=== PATIENT | female | born 1995 | race American Indian/Alaskan Native ===

== ENCOUNTER 2017-09-05 12:36 | Emergency (ER) | payer SELFPAY ==
[2017-09-05] MEDS ORDERED: NORCO 5/325 PO ONE (13:15)
[2017-09-05] MEDS ORDERED: XYLOCAINE 2%/EPI 1:100,000 INFILTRATI ONE (13:26)
[2017-09-05] MEDS ORDERED: XYLOCAINE 2%/ EPI 1:200,000 INFILTRATI ONE (13:27)
--- NOTE | 2017-09-05 13:29 | Emergency Department Report ---
Abscess Boil HPI - HPI Chief Complaint: Wound/Laceration Stated Complaint: INSECT BITE Duration: 1 Week Location: Lower Extremity Severity: Mild History: Yes Pain, Yes Purulent Drainage, Yes Insect Bite, No Fever, No Numbness , No Foreign Body, No Previous History HPI: 22 year old female presents to ED with left lower leg abscess x1 week. patient is stable, neurologically intact, afebrile and in no acute distress. Home Medications: Previous Rx's Medication Instructions Recorded Last Taken Type Cephalexin [Keflex] 500 mg PO Q8H #21 cap 09/05/17 Unknown Rx Meloxicam 7.5 mg PO QAM #7 tablet 09/05/17 Unknown Rx Allergies/Adverse Reactions: Allergies Allergy/AdvReac Type Severity Reaction Status Date / Time No Known Allergies Allergy Unverified 09/05/17 12:53 ED Review of Systems ROS: Stated complaint: INSECT BITE Other details as noted in HPI Constitutional: denies: chills, fever Eyes: denies: eye pain, eye discharge, vision change ENT: denies: ear pain, throat pain Respiratory: denies: cough, shortness of breath, wheezing Cardiovascular: denies: chest pain, palpitations Endocrine: no symptoms reported Gastrointestinal: denies: abdominal pain, nausea, diarrhea Genitourinary: denies: urgency, dysuria, discharge Musculoskeletal: denies: back pain, joint swelling, arthralgia Skin: other (abscess to left lower leg). denies: rash, lesions Neurological: denies: headache, weakness, numbness, paresthesias, confusion, abnormal gait, vertigo Psychiatric: denies: anxiety, depression Hematological/Lymphatic: denies: easy bleeding, easy bruising ED Past Medical Hx - Past Medical History Previous Medical History?: No - Surgical History Past Surgical History?: No - Social History Smoking Status: Current Some Day Smoker Substance Use Type: None - Medications Home Medications: Home Medications Medication Instructions Recorded Confirmed Last Taken Type Cephalexin [Keflex] 500 mg PO Q8H #21 cap 09/05/17 Unknown Rx Meloxicam 7.5 mg PO QAM #7 tablet 09/05/17 Unknown Rx ED Abscess Boil Physical Exam - Exam General: Vital signs noted. No distress. Alert and acting appropriately. Size: 4 cm Exam: Yes Tenderness, Yes Fluctuance, Yes Normal Neurologic Exam, Yes Normal Circulation, No Surrounding Cellulites/Erythema, No Lymphangitis, No Crepitation , No Heart Murmur Exam: abscess present to left lateral tib/fib. purulent drainage present at head of abscess. I & D Note - I & D Note I & D Note: area prepped with betadine. 5cc's of lido with epi used for numbing. moderate amount of drainage obtained after incision. packing inserted into wound. sterile dressing applied. patient tolerated procedure well. bleeding well controlled. ED Course Vital Signs 09/05/17 12:51 Temperature 97.7 F Pulse Rate 100 H Respiratory 18 Rate Blood Pressure 143/67 O2 Sat by Pulse 100 Oximetry Critical care attestation.: If time is entered above; I have spent that time in minutes in the direct care of this critically ill patient, excluding procedure time. ED Medical Decision Making - Lab Data Vital Signs (72 hours) 09/05/17 09/05/17 12:51 14:13 Temperature 97.7 F 98.6 F Pulse Rate 100 H 88 Respiratory 18 16 Rate Blood Pressure 143/67 Blood Pressure 135/81 [Left] O2 Sat by Pulse 100 100 Oximetry - Medical Decision Making 22 year old female presents to ED with abscess to left lower leg. patient tolerated I&D well. .patient agrees and understands to return to ED in 3 days for recheck. patient is stable, neurologically intact and in no acute distress. ED Disposition Clinical Impression: Abscess of leg, left Disposition: DC-01 TO HOME OR SELFCARE Is pt being admited?: No Does the pt Need Aspirin: No Condition: Stable Instructions: Abscess (ED) Additional Instructions: Please return in 3 days (Friday) for recheck Prescriptions: Cephalexin [Keflex] 500 mg PO Q8H #21 cap Meloxicam 7.5 mg PO QAM #7 tablet Referrals: PRIMARY CARE, [Primary Care Provider] - 3-5 Days Forms: Work/School Release Form(ED)
[2017-09-05] MEDS ORDERED: TRIPLE ANTIBIOTIC TP ONE (13:56)
[2017-09-05] MEDS ORDERED: XYLOCAINE 1%/ EPI 1:100,000 INFILTRATI NR (14:00)
[2017-09-05 14:14] VITALS: BP 135/81
== END 2017-09-05 14:13 | disposition home or self-care (01) ==
LOC: ED 12:36
DX: L02.416 Cutaneous abscess of left lower limb (principal); F17.200 Nicotine dependence, unspecified, uncomplicated
CPT/HCPCS: A6250

== ENCOUNTER 2017-09-30 09:45 | Emergency (ER) | payer SELFPAY ==
[2017-09-30 10:19] VITALS: BP 150/81
--- NOTE | 2017-09-30 11:30 | Emergency Department Report ---
ED General Adult HPI - General Chief complaint: Skin Rash Stated complaint: RASH Time Seen by Provider: 09/30/17 11:09 Source: patient Mode of arrival: Ambulatory Limitations: No Limitations - History of Present Illness Initial comments: 22 year old female presents with rash to bilateral lower leg. states that she just had an abscess drained to the left lower leg and finished taking abx. states now she is having another spot on left and right leg that is red, warm, ttp. denies swelling or pus drainage. denies taking medication since she finished her abx. denies fever. - Related Data Previous Rx's Medication Instructions Recorded Last Taken Type Cephalexin [Keflex] 500 mg PO Q8H #21 cap 09/05/17 Unknown Rx Meloxicam 7.5 mg PO QAM #7 tablet 09/05/17 Unknown Rx Ibuprofen [Motrin] 800 mg PO Q8HR PRN #20 tablet 09/30/17 Unknown Rx Sulfamethoxazole/Trimethoprim 1 each PO BID #20 tablet 09/30/17 Unknown Rx [Bactrim DS TAB] Allergies Allergy/AdvReac Type Severity Reaction Status Date / Time No Known Allergies Allergy Unverified 09/05/17 12:53 ED Review of Systems ROS: Stated complaint: RASH Other details as noted in HPI Constitutional: denies: chills, fever Eyes: denies: eye pain, eye discharge, vision change ENT: denies: ear pain, throat pain Respiratory: denies: cough, shortness of breath, wheezing Cardiovascular: denies: chest pain, palpitations Endocrine: no symptoms reported Gastrointestinal: denies: abdominal pain, nausea, diarrhea Genitourinary: denies: urgency, dysuria, discharge Musculoskeletal: denies: back pain, joint swelling, arthralgia Skin: rash. denies: lesions Neurological: denies: headache, weakness, paresthesias Psychiatric: denies: anxiety, depression Hematological/Lymphatic: denies: easy bleeding, easy bruising ED Past Medical Hx - Past Medical History Previous Medical History?: Yes Additional medical history: Skin rash/boils - Surgical History Past Surgical History?: No - Social History Smoking Status: Current Some Day Smoker Substance Use Type: None - Medications Home Medications: Home Medications Medication Instructions Recorded Confirmed Last Taken Type Cephalexin [Keflex] 500 mg PO Q8H #21 cap 09/05/17 Unknown Rx Meloxicam 7.5 mg PO QAM #7 tablet 09/05/17 Unknown Rx Ibuprofen [Motrin] 800 mg PO Q8HR PRN #20 tablet 09/30/17 Unknown Rx Sulfamethoxazole/Trimethoprim 1 each PO BID #20 tablet 09/30/17 Unknown Rx [Bactrim DS TAB] ED Physical Exam - General Limitations: No Limitations General appearance: alert, in no apparent distress - Head Head exam: Present: atraumatic, normocephalic - Eye Eye exam: Present: normal appearance - ENT ENT exam: Present: mucous membranes moist - Neck Neck exam: Present: normal inspection - Respiratory Respiratory exam: Present: normal lung sounds bilaterally. Absent: respiratory distress - Cardiovascular Cardiovascular Exam: Present: regular rate, normal rhythm. Absent: systolic murmur, diastolic murmur, rubs, gallop - GI/Abdominal GI/Abdominal exam: Present: soft, normal bowel sounds - Extremities Exam Extremities exam: Present: normal inspection - Back Exam Back exam: Present: normal inspection - Neurological Exam Neurological exam: Present: alert, oriented X3 - Psychiatric Psychiatric exam: Present: normal affect, normal mood - Skin Skin exam: Present: warm, dry, intact, normal color, other (bilateral lower leg have erythema about 6 cm in diameter with tenderness, slight induration. no fluctuance or pus drainage.). Absent: rash ED Course Vital Signs 09/30/17 10:13 Temperature 98.5 F Pulse Rate 68 Respiratory 18 Rate Blood Pressure 150/81 O2 Sat by Pulse 99 Oximetry ED Medical Decision Making - Medical Decision Making patient to be treated with bactrim for cellulitis. states that she is taking 2 baths a day. advised to bath less frequently. VSS for DC. NAD at this time. Critical care attestation.: If time is entered above; I have spent that time in minutes in the direct care of this critically ill patient, excluding procedure time. ED Disposition Clinical Impression: Cellulitis of right lower leg, Cellulitis of left lower leg Disposition: DC-01 TO HOME OR SELFCARE Is pt being admited?: No Does the pt Need Aspirin: No Condition: Good Instructions: Cellulitis (ED) Prescriptions: Ibuprofen [Motrin] 800 mg PO Q8HR PRN #20 tablet PRN Reason: Pain Sulfamethoxazole/Trimethoprim [Bactrim DS TAB] 1 each PO BID #20 tablet Referrals: BRAD MASTERSON MD [Primary Care Provider] - 3-5 Days Forms: Work/School Release Form(ED) Time of Disposition: 11:33
== END 2017-09-30 11:40 | disposition home or self-care (01) ==
LOC: ED 09:45
DX: L03.116 Cellulitis of left lower limb (principal); L03.115 Cellulitis of right lower limb; F17.200 Nicotine dependence, unspecified, uncomplicated
CPT/HCPCS: 99282

== ENCOUNTER 2019-06-23 18:12 | Emergency (ER) | payer SELFPAY ==
[2019-06-23 18:51] VITALS: BP 153/87
--- NOTE | 2019-06-23 18:51 | Emergency Department Report ---
Blank Doc - Documentation Documentation: This is a 24-year-old female that presents with dizziness and cough. Stated has chest pain that is aggravated and worsening coughing. Denies any SOB. This initial assessment/diagnostic orders/clinical plan/treatment(s) is/are subject to change based on patient's health status, clinical progression and re- assessment by fellow clinical providers in the ED. Further treatment and workup at subsequent clinical providers discretion. Patient/guardians urged not to elope from the ED as their condition may be serious if not clinically assessed and managed. Initial orders include: 1- Patient sent to [facility] for further evaluation and treatment 2- labs 3- CXR
[2019-06-23] MEDS ORDERED: NACL 0.9% 1000 ML 1,000 ML IV ONE (19:36)
[2019-06-23] MEDS ORDERED: ANTIVERT PO ONE (19:37)
[2019-06-23] MEDS ORDERED: FIORICET PO ONE (19:37)
[2019-06-23] MEDS ORDERED: TORADOL IV ONE (19:37)
[2019-06-23 20:46] LABS: Basophils % (Auto) 0.6 % (0.0-1.8); Eosinophils # (Auto) 0.2 K/mm3 (0.0-0.4); Eosinophils % (Auto) 2.3 % (0.0-4.3); Hematocrit 34.5 % (30.3-42.9); Hemoglobin 11.1 gm/dl (10.1-14.3); Lymphocytes # (Auto) 2.8 K/mm3 (1.2-5.4); Lymphocytes % (Auto) 35.5 % (13.4-35.0); Mean Corpuscular HGB Conc 32 % (30-34); Mean Corpuscular Volume 77 fl (79-97); Monocytes # (Auto) 0.9 K/mm3 (0.0-0.8); Monocytes % (Auto) 11.2 % (0.0-7.3); Platelet Count 370 K/mm3 (140-440); Red Blood Count 4.51 M/mm3 (3.65-5.03); Red Cell Distribution Width 16.2 % (13.2-15.2)
[2019-06-23 20:58] LABS: Alanine Aminotransferase 15 units/L (7-56); BUN/Creatinine Ratio 17; Blood Urea Nitrogen 12 mg/dL (7-17); Calcium 9.1 mg/dL (8.4-10.2); Hemolysis Index 2
--- NOTE | 2019-06-23 21:54 | XRay Report ---
CHEST PA AND LATERAL VIEWS INDICATION: cough. COMPARISON: None. FINDINGS: Support devices: None. Heart: Within normal limits. Lungs/Pleura: No acute pulmonary or pleural findings. IMPRESSION: 1. No significant abnormality. Signer Name: Tadeo Maxwell MD Signed: 06/23/2019 9:49 PM Workstation Name: [id number]
--- NOTE | 2019-06-23 22:25 | Emergency Department Report ---
ED General Adult HPI - General Chief complaint: Chest Pain Stated complaint: CHEST PAIN/DIZZY/COUGHING Time Seen by Provider: 06/23/19 18:48 Source: patient Mode of arrival: Ambulatory Limitations: No Limitations - History of Present Illness Initial comments: Patient is a 24 yo AA female with no past medical history who presents to the ED with c/o acute onset persistent nasal and sinus congestion, dry cough, frontal sinus headache and pressure with pleuritic chest wall pain x 2 weeks. Patient denies dizziness, abdominal pain, fever, chills, nausea, vomiting, diarrhea, dysuria, hematuria, sore throat and change in vision and neck pain MD Complaint: headache, dry coigh, sinus pressure, lightheadedness -: Sudden, week(s) (2) Location: head, chest Radiation: non-radiation Severity scale (0 -10): 7 Quality: aching, sharp, constant Consistency: constant Improves with: none Worsens with: none Associated Symptoms: denies other symptoms, chest pain, cough, headaches, loss of appetite. denies: confusion, fever/chills, malaise, nausea/vomiting, rash, seizure, shortness of breath, syncope, weakness Treatments Prior to Arrival: none - Related Data Previous Rx's Medication Instructions Recorded Last Taken Type Meloxicam 7.5 mg PO QAM #7 tablet 09/05/17 Unknown Rx cephALEXin [Keflex] 500 mg PO Q8H #21 cap 09/05/17 Unknown Rx Ibuprofen [Motrin] 800 mg PO Q8HR PRN #20 tablet 09/30/17 Unknown Rx Sulfamethoxazole/Trimethoprim 1 each PO BID #20 tablet 09/30/17 Unknown Rx [Bactrim DS TAB] Amoxicillin/Potassium Clav 1 each PO Q12H #20 tablet 06/23/19 Unknown Rx [Augmentin 875-125 Tablet] Butalb/Acetamin/Caff 50-325-40 1 tab PO Q6HR PRN #12 tab 06/23/19 Unknown Rx [Fioricet 50-325-40] Cetirizine HCl [Zyrtec 10mg tab] 10 mg PO DAILY #30 tablet 06/23/19 Unknown Rx Ibuprofen [Motrin] 800 mg PO Q8HR PRN #20 tablet 06/23/19 Unknown Rx Allergies Allergy/AdvReac Type Severity Reaction Status Date / Time No Known Allergies Allergy Unverified 09/05/17 12:53 ED Review of Systems ROS: Stated complaint: CHEST PAIN/DIZZY/COUGHING Other details as noted in HPI Constitutional: denies: chills, fever Eyes: denies: eye pain, eye discharge, vision change ENT: congestion. denies: ear pain, throat pain Respiratory: cough. denies: shortness of breath, wheezing Cardiovascular: denies: chest pain, palpitations Endocrine: no symptoms reported Gastrointestinal: denies: abdominal pain, nausea, diarrhea Genitourinary: denies: urgency, dysuria, discharge Musculoskeletal: denies: back pain, joint swelling, arthralgia Skin: denies: rash, lesions Neurological: headache, other (lightheadedness). denies: weakness, paresthesias Psychiatric: denies: anxiety, depression Hematological/Lymphatic: denies: easy bleeding, easy bruising ED Past Medical Hx - Past Medical History Previous Medical History?: No Additional medical history: Skin rash/boils - Surgical History Past Surgical History?: No - Social History Smoking Status: Never Smoker Substance Use Type: None - Medications Home Medications: Home Medications Medication Instructions Recorded Confirmed Last Taken Type Meloxicam 7.5 mg PO QAM #7 tablet 09/05/17 Unknown Rx cephALEXin [Keflex] 500 mg PO Q8H #21 cap 09/05/17 Unknown Rx Ibuprofen [Motrin] 800 mg PO Q8HR PRN #20 tablet 09/30/17 Unknown Rx Sulfamethoxazole/Trimethoprim 1 each PO BID #20 tablet 09/30/17 Unknown Rx [Bactrim DS TAB] Amoxicillin/Potassium Clav 1 each PO Q12H #20 tablet 06/23/19 Unknown Rx [Augmentin 875-125 Tablet] Butalb/Acetamin/Caff 50-325-40 1 tab PO Q6HR PRN #12 tab 06/23/19 Unknown Rx [Fioricet 50-325-40] Cetirizine HCl [Zyrtec 10mg tab] 10 mg PO DAILY #30 tablet 06/23/19 Unknown Rx Ibuprofen [Motrin] 800 mg PO Q8HR PRN #20 tablet 06/23/19 Unknown Rx ED Physical Exam - General Limitations: No Limitations General appearance: alert, in no apparent distress - Head Head exam: Present: atraumatic, normocephalic, normal inspection - Eye Eye exam: Present: normal appearance, PERRL, EOMI Pupils: Present: normal accommodation - ENT ENT exam: Present: normal exam, mucous membranes moist, TM's normal bilaterally, normal external ear exam, other (frontal sinus pressures tendernesss) - Neck Neck exam: Present: normal inspection, full ROM - Respiratory Respiratory exam: Present: normal lung sounds bilaterally. Absent: respiratory distress, wheezes, rales, rhonchi, chest wall tenderness, accessory muscle use, decreased breath sounds, prolonged expiratory - Cardiovascular Cardiovascular Exam: Present: regular rate, normal rhythm, normal heart sounds. Absent: systolic murmur, diastolic murmur, rubs, gallop - GI/Abdominal GI/Abdominal exam: Present: soft, normal bowel sounds. Absent: tenderness, guarding, rebound - Rectal Rectal exam: Present: deferred - Extremities Exam Extremities exam: Present: normal inspection, full ROM, normal capillary refill - Back Exam Back exam: Present: normal inspection, full ROM. Absent: tenderness, CVA tenderness (R), CVA tenderness (L), muscle spasm, paraspinal tenderness, vertebral tenderness - Neurological Exam Neurological exam: Present: alert, oriented X3, CN II-XII intact, normal gait, reflexes normal - Psychiatric Psychiatric exam: Present: normal affect, normal mood - Skin Skin exam: Present: warm, dry, intact, normal color. Absent: rash ED Course Vital Signs 06/23/19 06/23/19 06/23/19 18:49 21:10 21:27 Temperature 98.1 F Pulse Rate 98 H Respiratory 20 16 16 Rate Blood Pressure 153/87 O2 Sat by Pulse 99 Oximetry - Reevaluation(s) Reevaluation #1: 06/23/19 22:45 This is a 24-year-old female who presents to the ED with nasal and sinus congestion with pressure, frontal sinus headache, diffuse body aches, pleuritic chest wall pain, dry cough and lightheadedness for the last 2 weeks. In the ED, patient is alert and oriented 3 and is not in distress. Blood tests results were reviewed and are all unremarkable. Chest x-ray shows no acute cardiopulmonary abnormalities. On reevaluation, patient's pain resolved, generalized weakness also resolved. Patient felt better and was discharged home on medications. Patient is advised to follow-up with her primary care physician in 5-7 days for reevaluation or return to the ED immediately if symptoms get worse. ED Medical Decision Making - Lab Data Result diagrams: 06/23/19 20:27 06/23/19 20:27 - Radiology Data Radiology results: report reviewed, image reviewed Chest x-ray shows no acute cardiopulmonary monitors. - Medical Decision Making This is a 24-year-old female who presents to the ED with nasal and sinus congestion with pressure, frontal sinus headache, diffuse body aches, pleuritic chest wall pain, dry cough and lightheadedness for the last 2 weeks. In the ED, patient is alert and oriented 3 and is not in distress. Blood tests results were reviewed and are all unremarkable. Chest x-ray shows no acute cardiopulmonary abnormalities. On reevaluation, patient's pain resolved, generalized weakness also resolved. Patient felt better and was discharged home on medications. Patient is advised to follow-up with her primary care physician in 5-7 days for reevaluation or return to the ED immediately if symptoms get worse. - Differential Diagnosis sinus headache, frontal sinusitis, acute bronchitis Critical care attestation.: If time is entered above; I have spent that time in minutes in the direct care o f this critically ill patient, excluding procedure time. ED Disposition Clinical Impression: Intermittent lightheadedness Acute frontal sinusitis Qualifiers: Recurrence: non-recurrent Qualified Code(s): J01.10 - Acute frontal sinusitis, unspecified Acute bronchitis Qualifiers: Bronchitis organism: unspecified organism Qualified Code(s): J20.9 - Acute bronchitis, unspecified Acute sinusitis Qualifiers: Sinusitis location: frontal Recurrence: non-recurrent Qualified Code(s): J01.10 - Acute frontal sinusitis, unspecified Disposition: DC-01 TO HOME OR SELFCARE Is pt being admited?: No Does the pt Need Aspirin: No Condition: Stable Instructions: Acute Bronchitis (ED), Acute Bacterial Rhinosinusitis (ED), Lightheadedness (ED) Additional Instructions: Take medications with food, drink plenty of fluids and follow up with your Primary Care Physician in 7-10 days. Return to the ED immediately if symptoms get worse. Prescriptions: Amoxicillin/Potassium Clav [Augmentin 875-125 Tablet] 1 each PO Q12H #20 tablet Butalb/Acetamin/Caff 50-325-40 [Fioricet 50-325-40] 1 tab PO Q6HR PRN #12 tab PRN Reason: Headache Ibuprofen [Motrin] 800 mg PO Q8HR PRN #20 tablet PRN Reason: Pain , Severe (7-10) Cetirizine HCl [Zyrtec 10mg tab] 10 mg PO DAILY #30 tablet Referrals: PRIMARY CARE, [Primary Care Provider] - 3-5 Days Time of Disposition: 22:27 Print Language: UKRAINIAN
== END 2019-06-23 22:52 | disposition home or self-care (01) ==
LOC: ED 18:12
DX: J01.10 Acute frontal sinusitis, unspecified (principal); J20.9 Acute bronchitis, unspecified; Z79.899 Other long term (current) drug therapy
CPT/HCPCS: 36415; 71046; 80053; 84703; 85025; 96361; 96374; 99284; J1885; J7030